=== PATIENT | female | born 1980 | race Caucasian/White ===

== ENCOUNTER 2022-05-30 02:09 | Emergency (ER) | payer MEDICAID ==
[~2022-05-30] VITALS: Ht 165.1 cm; Wt 68.0 kg
[2022-05-30 02:20] VITALS: BP_SYST 127
[2022-05-30 02:35] VITALS: BP_SYST 121
== END 2022-05-30 02:35 | disposition left against medical advice (07) ==
LOC: SED 02:09
DX: R30.0 Dysuria (principal); Z87.440 Personal history of urinary (tract) infections; Z79.899 Other long term (current) drug therapy
CPT/HCPCS: 99281